=== PATIENT | female | born 1985 | race Caucasian/White ===

== ENCOUNTER 2019-11-07 02:18 | Emergency (ER) | payer OTHER ==
[~2019-11-07] VITALS: Ht 167.6 cm; Wt 74.8 kg
[2019-11-07 02:23] VITALS: BP_SYST 105
--- NOTE | 2019-11-07 02:23 | NUR ---
Patient to ER bed 5 to gown for evaluation. Side rails up.
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
--- NOTE | 2019-11-07 02:35 | NUR ---
PT USING BEDSIDE COMMODE TO GIVE URINE SAMPLE.
--- NOTE | 2019-11-07 02:45 | NUR ---
ER Dr. MATAMOROS at bedside examining patient.
[2019-11-07 03:04] LABS: BILIRUBIN,URINE NEGATIVE (NEGATIVE); BLOOD, URINE NEGATIVE (NEGATIVE); CLARITY/URINE CLEAR (CLEAR); COLOR,URINE YELLOW (YELLOW); GLUCOSE,URINE NEGATIVE (NEGATIVE); KETONES,URINE NEGATIVE (NEGATIVE); LEUKOCYTE ESTERASE ,URINE NEGATIVE (NEGATIVE); NITRITE, URINE NEGATIVE (NEGATIVE); PH,URINE 5.5 (5.0-8.0); PROTEIN URINE NEGATIVE (NEGATIVE); UROBILINOGEN,URINE 0.2 (0.2-1.0)
[2019-11-07 03:15] LABS: BARBITURATE, URINE NEGATIVE (NEG <=200); BENZODIAZEPINE, URINE NEGATIVE (NEG <=150); CANNABINOID, URINE NEGATIVE (NEG <=50); COCAINE, URINE NEGATIVE (NEG <=150); METHAMPHETAMINES SCREEN,URINE NEGATIVE (NEG <=500); OPIATE, URINE NEGATIVE (NEG <=100); PHENCYCLIDINE SCREEN,URINE NEGATIVE (NEG <=25); UR TRICYCLIC ANTIDEPRESSANTS NEGATIVE (NEG <=300); URINE AMPHETAMINE NEGATIVE (NEG <=500); URINE METHADONE NEGATIVE (NEG <=200); URINE OXYCODONE SCREEN NEGATIVE (NEG <=100); URINE PROPOXYPHENE SCREEN NEGATIVE (NEG <=300)
--- NOTE | 2019-11-07 03:15 | NUR ---
MOTHER DEIDRA FATHER LAZARO
--- NOTE | 2019-11-07 03:15 | NUR ---
spoke with patients parents, Peggy and Antonio, regarding status of patient with consent from patient.
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
--- NOTE | 2019-11-07 03:26 | NUR ---
as per Dr. Minor, patient disclosed tonight she took 3 pills of celexa as a suicide attempt because she was upset.
--- NOTE | 2019-11-07 03:29 | NUR ---
Patient placed on suicide precautions. Patient placed in room within close proximity to nurses' station for closer observation and monitoring. All clothing removed, placed in hospital gown. Metal detector wand used to further screen patient of any potential hazardous belongings. All belongings inventoried, placed in bags and removed from room. Cabinets locked. BP and pulse oximeter cords, and etl analyst developer leads removed.
--- NOTE | 2019-11-07 03:34 | NUR ---
security at bedside wanding patient.
--- NOTE | 2019-11-07 03:35 | NUR ---
DR. MATAMOROS SPEAKING WITH PATIENT PARENTS REGARDING EVENTS PRIOR TO BEING BROUGHT TO HOSPITAL.
--- NOTE | 2019-11-07 03:50 | NUR ---
lab at bedside for blood draw.
[2019-11-07] MEDS: NACL 0.9% 1,000 ML IV ONE ×2 (03:53→06:17)
--- NOTE | 2019-11-07 03:59 | NUR ---
Called Poison Control at [phone] and spoke with RUSS. Per recommendations:Per Russ pt needs to monitor 8hrs until back to base line and monitor for possible seizure,QRS&QTC prolongation and repeat EKG in 4hrs.Give benzo for seizure,Sodium Bicarb for QRS prolongation and potassium,mag,calcium for QTC prolongation. notified. Will continue to monitor patient.
[2019-11-07 04:13] LABS: BASOPHILS # (AUTO) 0.1 K/uL (0.0-0.2); BASOPHILS % (AUTO) 0.6 % (0.0-2.0); EOSINOPHILS # (AUTO) 0.3 K/uL (0.0-0.4); EOSINOPHILS % (AUTO) 2.5 % (0.0-4.0); HEMOGLOBIN 11.7 g/dL (12.0-16.0); LYMPHOCYTES # (AUTO) 4.3 K/uL (1.0-5.5); LYMPHOCYTES % (AUTO) 41.9 % (20.5-51.5); MEAN CORPUSCULAR HEMOGLOBIN 33 pg (27-31); MEAN CORPUSCULAR HGB CONC 35 % (32-36); MEAN CORPUSCULAR VOLUME 95 fL (79.0-98.0); MONOCYTES # (AUTO) 0.6 K/uL (0.0-1.0); MONOCYTES % (AUTO) 5.8 % (1.7-9.3); NEUTROPHILS # (AUTO) 5.1 K/uL (1.8-7.7); NEUTROPHILS % (AUTO) 49.2 % (40.0-70.0); PLATELET COUNT (AUTO) 495 K/uL (130-430); RED BLOOD CELL COUNT(AUTO) 3.58 MIL/uL (4.2-6.2); RED CELL DISTRIBUTION WIDTH 12.9 % (9.0-15.0); WHITE BLOOD COUNT (AUTO) 10.3 K/uL (4.8-10.8)
[2019-11-07] MEDS ORDERED: MORPHINE 4 MG/ML INJ. SYRINGE IVP ONE (04:15)
[2019-11-07 04:36] LABS: ANION GAP 8 (5-15); CALCIUM 7.6 mg/dL (8.4-11.0); CHLORIDE 98 mmol/L (98-107); CREATININE 0.63 mg/dL (0.55-1.30); GLUCOSE 88 mg/dL (70-99); SODIUM SERUM 131 mmol/L (136-145); UREA NITROGEN, BLOOD 10 mg/dL (8-21)
[2019-11-07 04:46] LABS: GFR AFRICAN AMERICAN 140 mL/min (>90)
--- NOTE | 2019-11-07 04:47 | NUR ---
PT VITAL SIGNS STABLE. NO SIGNS OF ACUTE DISTRESS, BREATHING EVEN AND UNLABORED. PT SLEEPING COMFORTABLY IN BED.
[2019-11-07 04:56] LABS: ALANINE AMINOTRANSFERASE 27 U/L (12-78); ALCOHOL, BLOOD 177 mg/dL (<10); ASPARTATE AMINOTRANSFERASE 21 U/L (10-37); FREE T4 (FREE THYROXINE) 1.1 ng/dl (0.8-1.5); THYROID STIMULATING HORMONE 0.67 uIu/mL (0.36-3.74); TOTAL BILIRUBIN 0.1 mg/dL (0.0-1.0)
[2019-11-07 04:59] LABS: ACETAMINOPHEN < 1 ug/mL (1-30)
[2019-11-07] MEDS ORDERED: CITA40TA22 PO (05:15)
--- NOTE | 2019-11-07 05:15 | NUR ---
Medication reconciliation completed with information provided by PATIENTS MOM. Any prior medication reconciliation on file was reviewed and corrected.
--- NOTE | 2019-11-07 05:30 | NUR ---
PT AMBULATES TO THE RESTROOM WITH STEADY GAIT.
--- NOTE | 2019-11-07 06:30 | NUR ---
IV FLUIDS INFUSING AT PRESCRIBED RATE. NO SIGNS OF INFILTRATION. VITAL SIGNS STABLE.
--- NOTE | 2019-11-07 07:10 | NUR ---
REPORT GIVEN TO DYLAN MENSAH FOR CONTINUATION OF CARE.
--- NOTE | 2019-11-07 08:46 | NUR ---
POISON CONTROLJosee called for update.
--- NOTE | 2019-11-07 09:00 | NUR ---
BREAKFAST SAFETY TRAY BROUGHT TO BS, PATIENT CONSUMED 95%
--- NOTE | 2019-11-07 09:33 | NUR ---
at bedside examining patient.
--- NOTE | 2019-11-07 09:49 | NUR ---
Dr. Samuel put pt on 5150 hold. Will look for placement.
--- NOTE | 2019-11-07 10:52 | NUR ---
Faxed 1995 paperwork to the following [facility] facilites: [facility] awaiting call back regarding [id number] placement.
[2019-11-07] MEDS: POTASSIUM CHLORIDE 20 MEQ/PKT PACKET PO ONE (12:11)
--- NOTE | 2019-11-07 12:43 | NUR ---
Gave report to Isabelle from [place] regarding pt. Dr Valle accepting physician.
[2019-11-07 14:45] VITALS: BP_SYST 102
--- NOTE | 2019-11-07 14:47 | NUR ---
Patient to be transferred to [facility]. Is being transferred due to higher level of care. Receiving facility has accepting physician and available space. ER physician has signed transfer form. Patient or responsible republican has agreed to transfer and signed form. Patient belongings inventoried and will be sent with patient. Copy of nursing notes, lab reports, EKG, Physicians Orders and X-rays to be sent with patient. Report called to at receiving facility. Receiving physician is DR CHAVARRIA. [facility] ambulance service has been called for transfer.
--- NOTE | 2019-11-08 12:50 | NUR ---
Patient called [facility] and was notified her COVID-19 "Not Detected" results (Ag rapid test) and instructed to follow preventive measures ([place] [employer] [facility]). Patient verbalizes understanding.
== END 2019-11-07 14:47 ==
LOC: SED 02:18
DX: F32.9 Major depressive disorder, single episode, unspecified (principal); R45.851 Suicidal ideations; Z72.89 Other problems related to lifestyle; Z20.828 Contact with and (suspected) exposure to other viral communicable diseases
CPT/HCPCS: 36415; 80053; 80307; 81003; 82550; 84439; 84443; 85025; 87426; 93005; 96360; 96361; 99285; G0480; G0481; G0482; J7030